=== PATIENT | male | born 1995 | race African-American/Black ===

== ENCOUNTER 2020-09-11 13:06 | Emergency (ER) | payer OTHER ==
[2020-09-11 13:38] VITALS: BP 123/75; PULSE 54; TEMP 98; BMI 24.4
[2020-09-11 14:01] LABS: MCH 29.5 pg (25.7-33.7); MEAN PLT VOLUME 11.4 fl (7.5-11.1); WHITE BLOOD COUNT 6.7 K/mm3 (4.0-10.8)
[2020-09-11] MEDS ORDERED: ONDANSETRON *ODT* 4 MG TABLET SL ONE (14:02)
[2020-09-11] MEDS ORDERED: PANTOPRAZOLE 40 MG TABLET PO ONE (14:03)
[2020-09-11] MEDS ORDERED: ONDANSETRON *ODT* 4 MG TABLET ONE (14:06)
[2020-09-11] MEDS ORDERED: PANTOPRAZOLE 40 MG TABLET ONE (14:06)
[2020-09-11 14:09] LABS: ALBUMIN 4.8 g/dl (3.4-5.0); BASO % 0.8 % (0-2.0); BILIRUBIN,TOTAL 0.8 mg/dl (0.2-1); CALCIUM 9.4 mg/dl (8.5-10); CREATININE 0.9 mg/dl (0.55-1.3); HEMATOCRIT 46.5 % (35.4-49); HEMOGLOBIN 15.5 GM/dl (11.7-16.9); LYMPH % 29.8 % (8-40); MCHC 33.4 g/dl (32.0-35.9); MEAN CELL VOLUME 88.3 fl (80-96); MONO % 8.4 % (3.8-10.2); PLATELET COUNT 177 K/MM3 (134-434); POTASSIUM 3.7 mmol/L (3.5-5.1); RBC 5.27 M/mm3 (4.00-5.60); RDW 12.2 % (11.9-15.9); TOT PROT 7.5 g/dl (6.4-8.2)
== END 2020-09-11 15:16 | disposition home or self-care (01) ==
LOC: EDSEX 13:06 → FER 13:06
DX: K29.50 Unspecified chronic gastritis without bleeding (principal)
CPT/HCPCS: 36415; 80053; 83690; 85025; 99283-25; Q0162

== ENCOUNTER 2020-10-14 10:28 | Emergency (ER) | payer OTHER ==
[2020-10-14 10:36] VITALS: BP 145/94; PULSE 71; TEMP 98; BMI 25.1
[2020-10-14] MEDS ORDERED: FAMOTIDINE 20 MG/50 ML IVPB 20 MG/50 ML MG IVPB ONE ×2 (11:07→11:15)
[2020-10-14] MEDS ORDERED: ONDANSETRON 4 MG/2 ML VIAL IVPUSH ONE (11:07)
[2020-10-14] MEDS ORDERED: ONDANSETRON 4 MG/2 ML VIAL ONE (11:15)
[2020-10-14] MEDS ORDERED: SODIUM CHLORIDE 1,000 ML IV STA (11:28)
[2020-10-14 11:40] LABS: BASO % 0.3 % (0-2.0); EOS % 1.1 % (0-4.5); HEMATOCRIT 44.5 % (35.4-49); HEMOGLOBIN 15.1 GM/dL (11.7-16.9); LYMPH % 26.3 % (8-40); MCH 29.7 pg (25.7-33.7); MCHC 33.9 g/dl (32.0-35.9); MEAN CELL VOLUME 87.5 fl (80-96); MONO % 8.3 % (3.8-10.2); PLATELET COUNT 145 K/MM3 (134-434); RBC 5.08 M/mm3 (4.00-5.60); RDW 13.6 % (11.9-15.9); WHITE BLOOD COUNT 6.8 K/mm3 (4.0-10.0)
[2020-10-14 11:52] LABS: ALBUMIN 4.6 g/dl (3.4-5.0); BLOOD UREA NITROGEN 12.4 mg/dL (7-18); CALCIUM 9.5 mg/dL (8.5-10.1); MAGNESIUM 1.8 mg/dL (1.8-2.4)
[2020-10-14 11:55] LABS: PHOSPHOROUS 3.9 mg/dL (2.5-4.9)
[2020-10-14 11:56] LABS: BILIRUBIN,TOTAL 0.9 mg/dL (0.2-1); TOT PROT 7.8 g/dl (6.4-8.2)
[2020-10-14] MEDS ORDERED: HALOPERIDOL LACTATE 5 MG/ML IM ONE (12:07)
[2020-10-14] MEDS ORDERED: HALOPERIDOL LACTATE 5 MG/ML ONE (12:24)
[2020-10-14] MEDS ORDERED: ACETAMINOPHEN 1000 MG/100 ML BAG IVPB ONE (12:30)
== END 2020-10-14 13:12 | disposition left against medical advice (07) ==
LOC: JER 10:28
PROC: 3E0333Z Introduction of Anti-inflammatory into Peripheral Vein, Percutaneous Approach (ICD-10-PCS; principal; 2020-10-14)
PROC: 3E033GC Introduction of Other Therapeutic Substance into Peripheral Vein, Percutaneous Approach (ICD-10-PCS; 2020-10-14)
PROC: 3E033GC Introduction of Other Therapeutic Substance into Peripheral Vein, Percutaneous Approach (ICD-10-PCS; 2020-10-14)
PROC: 3E023NZ Introduction of Analgesics, Hypnotics, Sedatives into Muscle, Percutaneous Approach (ICD-10-PCS; 2020-10-14)
PROC: 3E0337Z Introduction of Electrolytic and Water Balance Substance into Peripheral Vein, Percutaneous Approach (ICD-10-PCS; 2020-10-14)
DX: R10.13 Epigastric pain (principal)
CPT/HCPCS: 36415; 80053; 83690; 83735; 84100; 85025; 93005; 93010; 99284-25